=== PATIENT | male | born 1955 | race Caucasian/White ===

== ENCOUNTER 2024-04-02 12:59 | Outpatient (OUT) | payer MEDICARE, SELFPAY ==
--- NOTE | 2024-04-02 13:00 | CA_ITS ---
Patient Name: DANNY JACKSON MR#: [id number] : 1955 Exam Date: 04/02/2024 Ordering Doctor: DR KRISTINE BORJAS M.D. ECHOCARDIOGRAM REPORT PROCEDURE: CA ECHO DOPPLER COMPLETE INDICATIONS: Chronic heart failure with preserved ejection fraction, VA, hypertension COMPARISON: None. DESCRIPTION: COMPLETE ECHOCARDIOGRAM Real-time transthoracic echocardiography with 2D, M-mode, spectral and color flow Doppler performed. QUALITY: Technical quality was adequate. LEFT VENTRICLE: Normal chamber size. Mildly increased left ventricular wall thickness. LV EF: Global left ventricular systolic function is normal; visually estimated ejection fraction is 55%. Abnormal septal motion; may be related to underlying bundle branch block. DIASTOLIC: Normal diastolic function. ATRIAL SEPTUM: Visually appears intact. LEFT ATRIUM: Mild dilatation. RIGHT ATRIUM: Mild dilatation. RIGHT VENTRICLE: Mild dilatation. Decreased right ventricular systolic function. TRICUSPID VALVE: Normal mobility and thickness. No stenosis with trivial regurgitation. Doppler studies reveal mildly (35-45) elevated right sided pressures. RVSP 39 mmHg MITRAL VALVE: Mildly thickened with normal mobility. No evidence of mitral valve stenosis. There is no mitral annular calcification. Trivial mitral regurgitation. AORTIC VALVE: Normal trileaflet appearance. No visible sclerosis. Normal leaflet mobility. No evidence of aortic valve stenosis. No aortic regurgitation. AORTIC ROOT: Normal diameter and appearance. Ascending aorta is normal in size. PULMONIC VALVE: Normal thickness and mobility. No stenosis. Trivial regurgitation. PERICARDIUM: No evidence of pericardial effusion. IVC: IVC is dilated (2.5 cm), does not fully collapse. CONCLUSION: 1. Global left ventricular systolic function is normal; visually estimated ejection fraction is 55% 2. Abnormal septal motion 3. Right ventricle is mildly dilated with reduced systolic function 4. Mildly increased left ventricular wall thickness 5. Biatrial dilatation 6. Mildly elevated right ventricular systolic pressure; RVSP 39 mmHg 7. No significant valvular abnormalities Adult Echocardiography Procedure Report Left Ventricle LVEDD (3.7 - 5.6 cm): 4.84 cm LVESD (2.2 - 4.0 cm): 2.76 cm LVIVS thickness (0.6 - 1.2 cm): 1.09 cm LVPW thickness (0.5 - 1.0 cm): 1.18 cm e': 0.13 m/s E - e': 6.72 LVOT Max Gradient: 2.79 mm[Hg] LVOT Area (cm2): 0.83 m/s Peak Velocity (LVOT): 0.83 m/s Mean Velocity (LVOT): 0.45 m/s LVOT Diameter 2.27 cm Left Atrium LA Volume Index (2D A2C): 37.66 ml/m2 Left Atrium Systolic Dimension: 4.06 cm Mitral Valve MV E to A Ratio: 1.23 Mitral Valve A-Wave Peak Velocity: 0.70 m/s Mitral Valve E-Wave Peak Velocity: 0.86 m/s Right Ventricle Aorta AO Root Diam: 3.36 cm Ascending Ao Diam: 3.00 cm Aortic Valve AoV Area ([place]): 2.75 cm2, 2.75 cm2 AoV Area (VTI): 2.55 cm2, 2.55 cm2 Peak Velocity(Antegrade Flow): 1.23 m/s Peak Gradient(Antegrade Flow): 6.05 mm[Hg] Mean Velocity(Antegrade Flow): 0.77 m/s Mean Gradient(Antegrade Flow): 2.85 mm[Hg] Velocity Time Integral: 25.22 cm Tricuspid Valve Peak Velocity (Regurgitant Flow): 2.45 m/s Pulmonic Valve Mean Gradient: 1.99 mm[Hg] Mean Velocity: 0.65 m/s Peak Velocity: 0.99 m/s, 0.93 m/s Peak Gradient: 3.43 mm[Hg], 3.91 mm[Hg] Right Atrium Right Atrium Systolic Pressure: 76.49 ml, 76.49 ml Dictated by: Kristine Borjas M.D. on 04/03/2024 at 12:34 Approved by: Kristine Borjas M.D. on 04/03/2024 at 12:40
== END 2024-04-02 13:00 | disposition home or self-care (01) ==
PROVIDERS: PCP Physical Medicine & Rehabilitation; Visit Provider Internal Medicine Interventional Cardiology
DX: I50.32 Chronic diastolic (congestive) heart failure (principal)
CPT/HCPCS: 93306